=== PATIENT | male | born 1970 | race Caucasian/White ===

== ENCOUNTER 2020-05-04 20:50 | Observation (INO) | payer BC ==
[~2020-05-04] VITALS: Ht 182.9 cm; Wt 131.1 kg
[2020-05-04 21:25] LABS: HEMOGLOBIN 16.9 gm/dl (14.0-17.5); RED BLOOD COUNT 5.61 M/UL (4.20-5.50); WHITE BLOOD COUNT 7.1 K/UL (4.5-11.0)
[2020-05-04 21:49] LABS: BUN/CREATININE RATIO 16 (0-10)
[2020-05-05] MEDS ORDERED: LEVOTHYROXINE125 MC1 PO
[2020-05-05] MEDS ORDERED: PEPCID40 MG PO (00:01)
[2020-05-05] MEDS ORDERED: ASPIRIN CHEWABL81 MG PO (00:02)
[2020-05-05] MEDS ORDERED: PRINIVIL10 MG PO (00:02)
[2020-05-05] MEDS ORDERED: FISH OIL 1,2001 EACH PO (00:04)
[2020-05-05] MEDS ORDERED: NITROSTAT 0.40.4 MG SL (18:00)
== END 2020-05-05 17:34 | disposition home or self-care (01) ==
LOC: ER1 20:50 → M/S 23:32 → CDU 23:32 → M/S 05-05 00:08
PROVIDERS: Physician Assistant; ADMIT Internal Medicine
DX: R07.89 Other chest pain (principal); I10 Essential (primary) hypertension; E03.9 Hypothyroidism, unspecified; K21.9 Gastro-esophageal reflux disease without esophagitis; Z79.82 Long term (current) use of aspirin; Z79.899 Other long term (current) drug therapy; E78.5 Hyperlipidemia, unspecified; Z20.822 Contact with and (suspected) exposure to COVID-19
CPT/HCPCS: ECHO; 36415; 71045; 80053; 82550; 82553; 83874; 84484; 85025; 85379; 93005; 93306; 99285; G0378; U0002

== ENCOUNTER → 2020-11-05 | Outpatient (CLI) | payer BC ==
[~2020-11-05] MED LIST: ASPIRIN CHEWABL81 MG PO; FISH OIL 1,2001 EACH PO; LEVOTHYROXINE125 MC1 PO; NITROSTAT 0.40.4 MG SL; PEPCID40 MG PO; PRINIVIL10 MG PO
[2020-11-05 14:18] LABS: BUN/CREATININE RATIO 16 (0-10)
== END ==
LOC: CT 12:30
PROVIDERS: Physician Assistant
DX: R07.81 Pleurodynia (principal)
CPT/HCPCS: 36415; 80048; Q9967

== ENCOUNTER → 2021-01-25 | Outpatient (CLI) | payer BC | LOC: KOH-I 13:30 | DX: N50.819 Testicular pain, unspecified (principal) | CPT/HCPCS: 76870 ==

== ENCOUNTER → 2021-06-13 | Outpatient (CLI) | payer BC | LOC: KOH-I 08:14 | DX: R05.9 Cough, unspecified (principal) | CPT/HCPCS: 71046 ==